=== PATIENT | female | born 1995 | race Two or more races ===

== ENCOUNTER 2017-03-25 00:48 | Emergency (ER) | payer SELFPAY ==
[~2017-03-25] VITALS: Ht 165.1 cm; Wt 68.0 kg
[2017-03-25 01:12] VITALS: BP 125/90
[2017-03-25] MEDS ORDERED: Albuterol ud Inhalation HHN ONE ×2 (01:30→02:45)
[2017-03-25] MEDS ORDERED: Ipratropium 0.02% Inh Soln 2.5ml UD HHN ONE ×2 (01:30→02:45)
[2017-03-25] MEDS ORDERED: PredniSONE 20mg tab ORAL ONE (01:30)
--- NOTE | 2017-03-25 01:33 | Emergency Room Report ---
History of Present Illness General Chief Complaint: Upper Respiratory Illness Source: Patient Present Illness HPI Patient present with complaints of shortness of breath She feels that she might have bronchitis Patient has had symptoms over the past 6 days Feels that she is wheezing Feels her chest is tight Denies any worse he denies any abdominal pain denies any fevers Denies any neck pain or photophobia she reports that this has happened to her previously Allergies: Coded Allergies: No Known Allergies (Unverified , 03/25/17) Patient History Past Medical History: see triage record Pertinent Family History: none Last Menstrual Period: Last month Now: No Reviewed Nursing Documentation: PMH: Agreed, PSxH: Agreed Nursing Documentation-PMH Past Medical History: No Stated History Review of Systems All Other Systems: negative except mentioned in HPI Physical Exam Vital Signs Date Time Temp Pulse Resp B/P Pulse Ox O2 Delivery O2 Flow Rate FiO2 03/25/17 00:58 98.4 115 19 125/90 96 Room Air Sp02 EP Interpretation: reviewed, normal General Appearance: well appearing, no apparent distress Head: normocephalic, atraumatic Eyes: bilateral eye EOMI, bilateral eye PERRL ENT: hearing grossly normal, normal pharynx, TMs + canals normal, uvula midline Neck: full range of motion, supple, no meningismus, no bony tend Respiratory: no rhonchi, no respiratory distress, no retraction, no accessory muscle use, wheezing - Bilaterally Cardiovascular #1: normal peripheral pulses, regular rate, rhythm, no edema, no gallop, no JVD, no murmur Gastrointestinal: normal bowel sounds, non tender, soft, no mass, no organomegaly, non-distended, no guarding, no hernia, no pulsatile mass, no rebound Genitourinary: no CVA tenderness Musculoskeletal: normal inspection Neurologic: oriented x3, responsive, 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 as tested, motor strength/ tone normal, sensory intact Psychiatric: mood/affect normal Skin: normal color, no rash, warm/dry, palpation normal Lymphatic: normal inspection, no adenopathy Medical Decision Making Diagnostic Impression: Primary Impression: Upper respiratory infection Additional Impression: Reactive airway disease ER Course Patient is a fairly complex patient with multiple differential to consideration including but not limited to cardiac cardiopulmonary and vascular emergencies Given the patient's lung sounds she was provided with breathing treatments Was also given oral steroids Patient is moving air well no signs of any retractions She has had this symptom several times I did not feel that imaging study was required at this time Patient is significantly better with acute intervention I feel that she is a candidate for follow up with pulmonology and further evaluation of possible asthma Last Vital Signs Date Time Temp Pulse Resp B/P Pulse Ox O2 Delivery O2 Flow Rate FiO2 03/25/17 01:12 98.4 117 19 125/90 96 Room Air Status: improved Disposition: HOME, SELF-CARE Condition: Improved Scripts Prednisone* (PREDNISONE*) 20 Mg Tablet 20 MG ORAL BID, #10 TAB Prov: LYNDSEY RUBIO D.O. 03/25/17 Albuterol Sulfate* (ALBUTEROL SULFATE MDI*) 8.5 Gm Hfa.aer.ad 2 PUFF INH Q4H Y for cough/wheezing, #1 EA 0 Refills Prov: LYNDSEY RUBIO D.O. 03/25/17 Additional Instructions: Patient is provided with the discharge instructions notified to follow up with primary doctor in the next 2-3 days otherwise return to the er with any worsening symptoms. Please note that this report is being documented using [employer] technology. This can lead to erroneous entry secondary to incorrect interpretation by the dictating instrument. LYNDSEY RUBIO D.O. March 25, 2017 01:33
[2017-03-25 02:27] VITALS: BP 118/84
[2017-03-25] MEDS ORDERED: PREDNISONE20 MG ORAL (02:43)
[2017-03-25] MEDS ORDERED: ALBUTEROL SULF8.5 GM INH (02:43)
[2017-03-25 03:30] VITALS: BP 122/43
== END 2017-03-25 03:30 | disposition home or self-care (01) ==
LOC: EMR 01:15
DX: J06.9 Acute upper respiratory infection, unspecified (principal); J45.909 Unspecified asthma, uncomplicated
CPT/HCPCS: 94640; 94664; 99284

== ENCOUNTER 2017-09-23 01:44 | Emergency (ER) | payer MEDICAID ==
[~2017-09-23] VITALS: Ht 165.1 cm; Wt 72.6 kg
[~2017-09-23 01:44] MED LIST: ALBUTEROL SULF8.5 GM INH; PREDNISONE20 MG ORAL
[2017-09-23 02:00] VITALS: BP 117/85
[2017-09-23] MEDS ORDERED: PREDNISONE20 MG ORAL (02:04)
[2017-09-23] MEDS ORDERED: ALBUTEROL SULF8.5 GM INH (02:04)
--- NOTE | 2017-09-23 02:04 | Emergency Room Report ---
History of Present Illness General Chief Complaint: Upper Respiratory Illness Source: Patient Present Illness HPI Is a 21-year-old female with no past medical history but been diagnosed with bronchitis frequently. She presents with chief complaint shortness of breath/ bronchitis. This onset for one day. She said was triggered by smoke and being outside. Worse with exertion. No fever chills but no nausea vomiting. Out of her inhaler. Allergies: Coded Allergies: No Known Allergies (Unverified , 03/25/17) Patient History Past Medical History: see triage record, old chart reviewed Past Surgical History: none Pertinent Family History: none Social History: Denies: smoking Last Menstrual Period: 08/29/17 Now: No Immunizations: other Reviewed Nursing Documentation: PMH: Agreed, PSxH: Agreed Nursing Documentation-PMH Past Medical History: No History, Except For Hx Cardiac Problems: No - Bronchitis Review of Systems Eye: Denies: eye pain, blurred vision ENT: Denies: ear pain, nose congestion, throat swelling Respiratory: Reports: cough, shortness of breath, wheezing Cardiovascular: Denies: chest pain, palpitations Gastrointestinal: Denies: abdominal pain, diarrhea, nausea, vomiting Musculoskeletal: Denies: back pain, joint pain Skin: Denies: rash Neurological: Denies: headache, numbness Endocrine: Denies: increased thirst, increased urine Hematologic/Lymphatic: Denies: easy bruising All Other Systems: negative except mentioned in HPI Physical Exam Vital Signs Date Time Temp Pulse Resp B/P (MAP) Pulse Ox O2 Delivery O2 Flow Rate FiO2 09/23/17 01:50 97.7 90 17 117/85 97 Room Air vitals normal Sp02 EP Interpretation: reviewed, normal General Appearance: well appearing, no apparent distress, alert Head: normocephalic, atraumatic Eyes: bilateral eye PERRL, bilateral eye EOMI ENT: hearing grossly normal, normal pharynx Neck: full range of motion, supple, no meningismus Respiratory: chest non-tender, normal breath sounds, wheezing Cardiovascular #1: regular rate, rhythm, no murmur Gastrointestinal: normal bowel sounds, non tender, no mass, no organomegaly, no bruit, non-distended Musculoskeletal: back normal, gait/station normal, normal range of motion Neurologic: alert, oriented x3 Psychiatric: mood/affect normal Skin: warm/dry Medical Decision Making Diagnostic Impression: Primary Impression: Asthma exacerbation, mild ER Course This patient present with asthma exacerbation. No evidence of ACS, PE, dissection to name a few. We'll discharge home. Last Vital Signs Date Time Temp Pulse Resp B/P (MAP) Pulse Ox O2 Delivery O2 Flow Rate FiO2 09/23/17 02:00 97.7 97 17 117/85 97 Room Air Status: improved Disposition: HOME, SELF-CARE Condition: Stable Scripts Prednisone* (PREDNISONE*) 20 Mg Tablet 60 MG ORAL DAILY, #12 TAB Prov: KARINE MYERS M.D. 09/23/17 Albuterol Sulfate* (ALBUTEROL SULFATE MDI*) 8.5 Gm Hfa.aer.ad 2 PUFF INH Q4H Y for cough/wheezing, #1 EA 0 Refills Prov: KARINE MYERS M.D. 09/23/17 Additional Instructions: Followup with your DrUzma in 2-5 days. Return if symptom worsen. KARINE MYERS M.D. Sep 23, 2017 02:04
[2017-09-23] MEDS ORDERED: Albuterol/Ipratropium 3ml neb HHN ONE (02:15)
[2017-09-23 02:20] VITALS: BP 117/85
== END 2017-09-23 02:20 | disposition home or self-care (01) ==
LOC: EMR 02:10
DX: J45.901 Unspecified asthma with (acute) exacerbation (principal)
CPT/HCPCS: 94640; 99284; J7620

== ENCOUNTER 2018-01-10 22:53 | Emergency (ER) | payer MEDICAID ==
[~2018-01-10] VITALS: Ht 165.1 cm; Wt 72.6 kg
[2018-01-10 23:15] VITALS: BP 132/81
[2018-01-10] MEDS ORDERED: Solu-MEDROL 125mg Inj IVP ONE (23:45)
[2018-01-10] MEDS ORDERED: Albuterol/Ipratropium 3ml neb HHN ONE (23:45)
[2018-01-11 00:15] VITALS: BP 128/78
[2018-01-11] MEDS ORDERED: AZITHROMYCIN250 MG ORAL (01:16)
[2018-01-11] MEDS ORDERED: PREDNISONE20 MG ORAL (01:16)
[2018-01-11] MEDS ORDERED: ALBUTEROL SULF8.5 GM INH (01:16)
--- NOTE | 2018-01-11 01:16 | Emergency Room Report ---
History of Present Illness General Chief Complaint: Dyspnea/Respdistress Source: Patient Present Illness HPI Is a 22-year-old female with history of asthma. She presents with wheezing and shortness of breath. Onset for over a week now. She was at [facility] last week treated with inhaler and prednisone. She said he got better for 2 days but now worsen. Cough is nonproductive in nature. Not as bad as last time. No nausea no vomiting. Out of her inhaler. Denies any other complaint. Coughing is productive of phlegm. No runny nose or congestion. Allergies: Coded Allergies: No Known Allergies (Unverified , 03/25/17) Patient History Past Medical History: see triage record, old chart reviewed, asthma Past Surgical History: none Pertinent Family History: none Social History: Denies: smoking Last Menstrual Period: dec 27 Now: No : 0 Para: 0 Immunizations: other Reviewed Nursing Documentation: PMH: Agreed, PSxH: Agreed Nursing Documentation-PMH Past Medical History: No Stated History Hx Cardiac Problems: No - Bronchitis Review of Systems Eye: Denies: eye pain, blurred vision ENT: Denies: ear pain, nose congestion, throat swelling Respiratory: Reports: cough, shortness of breath, wheezing Cardiovascular: Denies: chest pain, palpitations Gastrointestinal: Denies: abdominal pain, diarrhea, nausea, vomiting Musculoskeletal: Denies: back pain, joint pain Skin: Denies: rash Neurological: Denies: headache, numbness Endocrine: Denies: increased thirst, increased urine Hematologic/Lymphatic: Denies: easy bruising All Other Systems: negative except mentioned in HPI Physical Exam Vital Signs Date Time Temp Pulse Resp B/P (MAP) Pulse Ox O2 Delivery O2 Flow Rate FiO2 01/10/18 22:57 98.0 104 18 129/81 95 Room Air 98.1 01/10/18 23:56 21 vitals normal Sp02 EP Interpretation: reviewed, normal General Appearance: well appearing, no apparent distress, alert Head: normocephalic, atraumatic Eyes: bilateral eye PERRL, bilateral eye EOMI ENT: hearing grossly normal, normal pharynx Neck: full range of motion, supple, no meningismus Respiratory: chest non-tender, decreased breath sounds, accessory muscle use, wheezing Cardiovascular #1: regular rate, rhythm, no murmur Gastrointestinal: normal bowel sounds, non tender, no mass, no organomegaly, no bruit, non-distended Musculoskeletal: back normal, gait/station normal, normal range of motion Psychiatric: mood/affect normal Skin: warm/dry Medical Decision Making Diagnostic Impression: Primary Impression: Upper respiratory infection Qualified Codes: J06.9 - Acute upper respiratory infection, unspecified Additional Impression: Asthma with exacerbation Qualified Codes: J45.31 - Mild persistent asthma with (acute) exacerbation ER Course Patient presents with upper respiratory infection with asthma exacerbation. Because his persistent symptoms, we'll put her on antibiotics for atypical pneumonia. No evidence of influenza. She cleared up after treatment and steroid. We'll discharge home. Chest X-Ray Diagnostic Results Chest X-Ray Diagnostic Results : Chest X-Ray Ordered: Yes # of Views/Limited/Complete: 1 View Indication: Shortness of Breath EP Interpretation: Yes Interpretation: no consolidation, no effusion, no pneumothorax, no acute cardiopulmonary disease Impression: No acute disease Electronically Signed by: Koko Reyes MD Last Vital Signs Date Time Temp Pulse Resp B/P (MAP) Pulse Ox O2 Delivery O2 Flow Rate FiO2 01/11/18 00:15 98.1 89 18 128/78 99 Room Air 98.1 01/10/18 23:56 21 Status: improved Disposition: HOME, SELF-CARE Condition: Stable Scripts Azithromycin* (ZITHROMAX*) 250 Mg Tablet 250 MG ORAL DAILY, #6 TAB 0 Refills Take two tablets by mouth today, then take one tablet by mouth daily for four days Prov: KOKO REYES M.D. 01/11/18 Prednisone* (PREDNISONE*) 20 Mg Tablet 60 MG ORAL DAILY, #15 TAB Prov: KOKO REYES M.D. 01/11/18 Albuterol Sulfate* (ALBUTEROL SULFATE MDI*) 8.5 Gm Hfa.aer.ad 2 PUFF INH Q4H Y for cough/wheezing, #1 EA 0 Refills Prov: KOKO REYES M.D. 01/11/18 Additional Instructions: Followup with your DrUzma in 2-3 days. Return if symptom worsen. KOKO REYES M.D. Jan 11, 2018 01:16
[2018-01-11 01:26] VITALS: BP 128/78
--- NOTE | 2018-01-11 11:01 | Diagnostic Imaging Report ---
Indication: Dyspnea Comparison: None A single view chest radiograph was obtained. Findings: Cardiomediastinal appearance is within normal limits for age. Pulmonary vascularity is appropriate. The diaphragmatic contour is smooth and costophrenic angles are sharp. No pleural effusions are identified. The bones are unremarkable. Impression: No acute findings
== END 2018-01-11 01:26 | disposition home or self-care (01) ==
LOC: EMR 23:35
DX: J06.9 Acute upper respiratory infection, unspecified (principal); J45.901 Unspecified asthma with (acute) exacerbation
CPT/HCPCS: 71045; 86710; 94640; 96374; 99284; J2930

== ENCOUNTER 2018-03-20 00:40 | Emergency (ER) | payer MEDICAID ==
[~2018-03-20] VITALS: Ht 165.1 cm; Wt 77.1 kg
[~2018-03-20 00:40] MED LIST changes: +AZITHROMYCIN250 MG ORAL
--- NOTE | 2018-03-20 01:03 | Emergency Room Report ---
History of Present Illness General Chief Complaint: Syncope Source: Patient Present Illness HPI Is a 22-year-old female with history of asthma. It is well-controlled. Patient presents with chief complaint of syncope. She was working out at the gym when she felt her heart rate beating really fast. She said she became ill and sweaty. She had a syncopal episode. She thinks it was about a minute. Witnessed by her boyfriend. Never had this problem before. No history of sudden in the family. No chest pain. No history of stimulants use or drug abuse. Allergies: Coded Allergies: No Known Allergies (Unverified , 03/25/17) Patient History Past Medical History: see triage record, old chart reviewed, asthma Past Surgical History: none Pertinent Family History: none Social History: Denies: smoking Last Menstrual Period: february 20 Now: No : 0 Para: 0 Immunizations: other Reviewed Nursing Documentation: PMH: Agreed; PSxH: Agreed Nursing Documentation-PMH Hx Cardiac Problems: No - Bronchitis Hx Asthma: Yes Review of Systems Eye: Denies: eye pain, blurred vision ENT: Denies: ear pain, nose congestion, throat swelling Respiratory: Denies: cough, shortness of breath Cardiovascular: Denies: chest pain, palpitations Gastrointestinal: Denies: abdominal pain, diarrhea, nausea, vomiting Musculoskeletal: Denies: back pain, joint pain Skin: Denies: rash Neurological: Denies: headache, numbness Endocrine: Denies: increased thirst, increased urine Hematologic/Lymphatic: Denies: easy bruising All Other Systems: negative except mentioned in HPI Physical Exam Vital Signs Date Time Temp Pulse Resp B/P (MAP) Pulse Ox O2 Delivery O2 Flow Rate FiO2 03/20/18 00:49 98.5 65 18 104/71 98 Room Air 98.4 vitals normal Sp02 EP Interpretation: reviewed, normal General Appearance: well appearing, no apparent distress, alert Head: normocephalic, atraumatic Eyes: bilateral eye PERRL, bilateral eye EOMI ENT: hearing grossly normal, normal pharynx Neck: full range of motion, supple, no meningismus Respiratory: chest non-tender, lungs clear, normal breath sounds Cardiovascular #1: regular rate, rhythm, no murmur Gastrointestinal: normal bowel sounds, non tender, no mass, no organomegaly, no bruit, non-distended Musculoskeletal: back normal, gait/station normal, normal range of motion Psychiatric: mood/affect normal Skin: warm/dry Medical Decision Making Diagnostic Impression: Primary Impression: Syncope Qualified Codes: R55 - Syncope and collapse ER Course Patient presents with syncope while exercising. No family history of sudden or arrhythmia. We'll discharge home with cardiology follow-up. Told patient no strenuous activity until seen by certified pharmacist assistant. No evidence of PE, WPW, ACS, dissection to name a few. Lab Results Impression labs normal EKG Diagnostic Results Rate: normal Rhythm: NSR ST Segments: no acute changes Rhythm Strip Diag. Results Rhythm Strip Time: 01:16 EP Interpretation: yes Rate: 70 Rhythm: NSR, no PVC's, no ectopy Chest X-Ray Diagnostic Results Chest X-Ray Diagnostic Results : Chest X-Ray Ordered: Yes # of Views/Limited/Complete: 1 View Indication: Chest Pain EP Interpretation: Yes Interpretation: no consolidation, no effusion, no pneumothorax, no acute cardiopulmonary disease Impression: No acute disease Electronically Signed by: Koko Reyes MD Last Vital Signs Date Time Temp Pulse Resp B/P (MAP) Pulse Ox O2 Delivery O2 Flow Rate FiO2 03/20/18 00:49 98.5 65 18 104/71 98 Room Air 98.4 Status: improved Disposition: HOME, SELF-CARE Condition: Stable Patient Instructions: Syncope Additional Instructions: No exercise or strenuous activity until cleared by certified pharmacist assistant. Follow-up your doctor within a week. You will need a referral to see the certified pharmacist assistant for echocardiogram. Return if symptom worsen. KOKO REYES M.D. Mar 20, 2018 01:03
[2018-03-20 01:36] LABS: BASOPHILS % (AUTO) 0.6 % (0.0-2.0); EOSINOPHILS % (AUTO) 6.8 % (0.0-3.0); HEMATOCRIT 33.1 % (37.0-47.0); HEMOGLOBIN 12.5 G/DL (12.0-16.0); LYMPHOCYTES % (AUTO) 26.1 % (20.0-45.0); MEAN CORPUSCULAR VOLUME 79 FL (80-99); MONOCYTES % (AUTO) 6.1 % (1.0-10.0); NEUTROPHILS % (AUTO) 60.3 % (45.0-75.0); PLATELET COUNT 251 K/UL (150-450); RED CELL DISTRIBUTION WIDTH 16.3 % (11.6-14.8)
[2018-03-20 01:44] LABS: APPEARANCE,URINE CLEAR; BILIRUBIN, URINE NEGATIVE (NEGATIVE); GLUCOSE, URINE (UA) NEGATIVE (NEGATIVE); KETONES,URINE NEGATIVE (NEGATIVE); LEUKOCYTE ESTERASE ,URINE 1+ (NEGATIVE); NITRITE,URINE NEGATIVE (NEGATIVE); PH,URINE 5 (4.5-8.0); PROTEIN,URINE 1+ (NEGATIVE); UROBILINOGEN,URINE 1 MG/DL (0.0-1.0)
[2018-03-20 01:51] LABS: ANION GAP 12 mmol/L (5-15); BLOOD UREA NITROGEN 7 mg/dL (7-18); CALCIUM 8.9 MG/DL (8.5-10.1); CARBON DIOXIDE 22 MMOL/L (21-32); CHLORIDE 103 MMOL/L (98-107); CREATININE 0.9 MG/DL (0.55-1.30); POTASSIUM 3.4 MMOL/L (3.5-5.1); SODIUM 137 MMOL/L (136-145)
[2018-03-20 02:14] LABS: COLOR,URINE YELLOW
[2018-03-20 02:24] VITALS: BP 104/71
--- NOTE | 2018-03-20 11:41 | Diagnostic Imaging Report ---
Indication: Chest pain Technique: One view of the chest Comparison: 01/10/2018 Findings: Lungs and pleural spaces are clear. Heart size is normal. No significant interim change Impression: No acute process
--- NOTE | 2018-03-23 17:53 | Cardiology Report ---
APPROVED REPORT EKG Measurement Heart [id number] ID [id number] Sinus rhythm with marked sinus arrhythmia Otherwise normal ECG
== END 2018-03-20 03:25 | disposition home or self-care (01) ==
LOC: EMR 01:00
DX: R55 Syncope and collapse (principal); R07.9 Chest pain, unspecified
CPT/HCPCS: 36415; 71045; 80048; 80307; 81003; 81025; 84484; 85025; 93005; 99283